=== PATIENT | male | born 1955 | race Two or more races ===

== ENCOUNTER 2022-08-11 14:05 | Emergency (ER) | payer MEDICAID, OTHER ==
[~2022-08-11] VITALS: Ht 172.7 cm; Wt 90.0 kg
[2022-08-11 14:14] VITALS: BP 138/88
[2022-08-11] MEDS ORDERED: ACETAMINOPHEN 500MG TABLET PO ONE (15:45)
[2022-08-11] MEDS ORDERED: TETANUS, DIPHTHERIA, PERTUSSIS VAC/PF 0.5ML (>10YR OLD) IM ONE (15:45)
[2022-08-11] MEDS ORDERED: ACET-2708 MT (17:20)
== END 2022-08-11 18:17 | disposition home or self-care (01) ==
LOC: EDBD 14:05 → ER 14:05
DX: S01.01XA Laceration without foreign body of scalp, initial encounter (principal); E11.9 Type 2 diabetes mellitus without complications; Z79.82 Long term (current) use of aspirin; W18.2XXA Fall in (into) shower or empty bathtub, initial encounter; Y93.E1 Activity, personal bathing and showering; Y92.012 Bathroom of single-family (private) house as the place of occurrence of the external cause
CPT/HCPCS: 12002; 90471; 90715; 99284